=== PATIENT | male | born 1985 | race Caucasian/White ===

== ENCOUNTER 2016-12-04 20:57 | Emergency (ER) | payer MEDICAID ==
[2016-12-04] MEDS ORDERED: OPTIRAY 350 100 ML VIAL HMH IV ONE (20:58)
[2016-12-05] MEDS ORDERED: CLINDAMYCIN 900 MG in DEXTROSE 5% 50 ML IV ONE (00:29)
[2016-12-05] MEDS ORDERED: KETOROLAC 30 MG/ML VIAL ONE (02:46)
== END 2016-12-05 03:17 | disposition home or self-care (01) ==
LOC: ER 20:57
CPT/HCPCS: 36415; 74177; 80048; 81003; 85025; 87040; 96365; 96375